=== PATIENT | female | born 1945 | race Caucasian/White ===

== ENCOUNTER 2016-05-03 13:47 | Emergency (ER) | payer MEDICARE, MEDICAID ==
[~2016-05-03] VITALS: Ht 154.9 cm; Wt 70.0 kg
[~2016-05-03 13:47] MED LIST: MOBI7.5T PO; NITR0.4S SL; PROP10TA6 PO
[2016-05-03 13:48] VITALS: BP 153/77; PULSE 88; RESP 20; TEMP 98.2; O2SAT 97
--- NOTE | 2016-05-03 16:05 | PD ---
HPI Chief Complaint: Fall Time Seen by Provider: 16:00 Travel History International Travel<30 days: No Contact w/Intl Traveler<30days: No Traveled to known affect area: No History of Present Illness HPI Patient is a 70-year-old female presenting to the emergency room evaluation of left neck, left shoulder, and back pain. Patient states she fell one week ago when she tripped over a case of water at the store. She denies any head injury or loss of consciousness. Patient further denies any bladder or bowel incontinence, saddle paresthesia, numbness or weakness in her lower extremities. Patient reports laying in bed for the last week, she states it feels better when she still. She states her pain is a 7 out of 10 when she moves around. She's been taking 2 hufx-qqy-tzqdrct Tylenol tablets every 4-6 hours for pain relief. Patient has a history of sciatica, SVT, asthma per her report. She is uncertain what the name of her primary care provider as [facility] Past Medical History Arthritis: Yes Asthma: Yes Atrial Fibrillation: Yes Bipolar Disorder: Yes Anxiety: No Depression: No Heart Rhythm Problems: Yes (afib) Cancer: No Cardiac Catheterization: No Cardiovascular Problems: Yes High Cholesterol: No Chest Pain: Yes Congestive Heart Failure: No COPD: No Cerebrovascular Accident: No Diabetes: No Diminished Hearing: No GERD: Yes Genitourinary: No Headaches: Yes (MIGRAINES) Hepatitis: Yes Hypertension: Yes Immune Disorder: No Implanted Vascular Access Dvce: No Musculoskeletal: Yes (STATES LEFT FOOT FX IN JUNE 01 AND CHRONIC BACK PAIN) Neurologic: Yes Psychiatric: No Reproductive: No Respiratory: Yes Immunizations Current: Yes (FLU 2009) Migraines: Yes Myocardial Infarction: No Seizures: No Sleep Apnea: No Thyroid Disease: No Menopausal: Yes Tubal Ligation: Yes Past Surgical History Abdominal Surgery: Yes (EXPLORATORY SURG) Cholecystectomy: Yes Coronary Artery Bypass Graft: No Other Surgery: Yes (BILATERAL BREAST REDUCTION, LIPOMA REMOVED FROM NECK) Social History Alcohol Use: No Tobacco Use: No Substance Use: No Allergies-Medications (Allergen,Severity, Reaction): Coded Allergies: Ants (Verified Allergy, Intermediate, Swelling, 05/03/16) BITE CEDENO, SWELLING AND BURNING Oxycodone (Verified Allergy, Intermediate, vomiting , 05/03/16) *MDRO Multi-Drug Resistant Organism (Verified Adverse Reaction, Unknown, ) MRSA (abdomen wound) - 09/2012 MRSA PCR Screen NEGATIVE - 03/03/2015 Reported Meds & Prescriptions Reported Meds & Active Scripts Active Tramadol (Tramadol HCl) 50 Mg Tab 50 Mg PO Q6H PRN Propranolol (Propranolol HCl) 10 Mg Tab 10 Mg PO BID Mobic (Meloxicam) 7.5 Mg Tab 7.5 Mg PO DAILY Reported Nitrostat SL (Nitroglycerin) 0.4 Mg Subl 0.4 Mg SL DIRECTED PRN 1 tablet under the tongue as needed for chest pain. Repeat every 5 minutes for a total of 3 DOSES or call 911 if NO relief. Review of Systems Except as stated in HPI: all other systems reviewed are Neg HENT: Positive: Neck Stiffness, Neck Pain, No: Headaches Cardiovascular: No: Chest Pain or Discomfort Respiratory: No: Shortness of Breath Gastrointestinal: No: Nausea, Vomiting, Abdominal Pain Musculoskeletal: Positive: Myalgias, Cramping Physical Exam Narrative GENERAL: Well-developed, well-nourished, alert elderly female. Resting comfortably in no acute distress. SKIN: Warm and dry. HEAD: Atraumatic. Normocephalic. EYES: Pupils equal and round. No scleral icterus. No injection or drainage. ENT: No nasal bleeding or discharge. Mucous membranes pink and moist. NECK: Trachea midline. No JVD. Tenderness to palpation paraspinal musculature in the cervical region. CARDIOVASCULAR: Regular rate and rhythm. No murmur appreciated. RESPIRATORY: No accessory muscle use. Clear to auscultation. Breath sounds equal bilaterally. GASTROINTESTINAL: Abdomen soft, non-tender, nondistended. Hepatic and splenic margins not palpable. MUSCULOSKELETAL: No obvious deformities. No clubbing. No cyanosis. No edema. Tenderness palpation paraspinal musculature in the lumbar region more so on the left than the right. Full range of motion all 4 extremities. 5/5 muscle strength in all 4 extremities. NEUROLOGICAL: Awake and alert. No obvious cranial nerve deficits. Motor grossly within normal limits. Normal speech. PSYCHIATRIC: Appropriate mood and affect; insight and judgment normal. Data Data Last Documented VS Vital Signs Date Time Temp Pulse Resp B/P Pulse Ox O2 Delivery O2 Flow Rate FiO2 05/03/16 13:48 98.2 88 20 153/[address] Cerv Spine W/O Contrast (05/03/16 ) Ct Lumb Spine W/O Contrast (05/03/16 ) Shoulder, Complete (>2vws) (05/03/16 ) Ankle, Complete ([id number]) (05/03/16 ) MDM Medical Decision Making Medical Screen Exam Complete: Yes Emergency Medical Condition: Yes Interpretation(s) Vital Signs Date Time Temp Pulse Resp B/P Pulse Ox O2 Delivery O2 Flow Rate FiO2 05/03/16 13:48 98.2 88 20 153/77 97 Room Air Differential Diagnosis Strain versus sprain versus spasm versus fracture versus other Narrative Course Patient is a 70-year-old female presenting one week after a mechanical fall at the store when she tripped over a case of water falling onto her left side. Patient is been taking zupv-oeg-tqhneod Tylenol and has been mostly on bed rest since the fall occurred. Patient is neurologically intact, imaging ordered and pending. Workup initiated in triage, care patient will be transferred to provider when a medical bed is available. Scripts Tramadol 50 Mg Tab50 Mg PO Q6H PRN (PAIN) #20 TAB Ref 0 Prov:Remi Vickers MD 05/03/16 Aria Franks May 03, 2016 16:05
--- NOTE | 2016-05-03 17:03 | PD ---
HPI Chief Complaint: Fall Time Seen by Provider: 16:48 Travel History International Travel<30 days: No Contact w/Intl Traveler<30days: No Traveled to known affect area: No History of Present Illness HPI 70-year-old female presents for evaluation of pain. One week ago she was in line at a store and she tripped over a cart and water. When on the left side of her body. She has had persistent left-sided neck pain, lower back pain and left shoulder pain and left ankle pain since the fall. Pain is an aching pain which is mild but worse when ambulating. She has been taking Tylenol and using gtty-ugi-nfywufp pain patches but symptoms have persisted which prompted the evaluation today. No bowel or bladder incontinence or saddle anesthesia. No chest pain, shortness of breath, headache. No other complaints. PFSH Past Medical History Arthritis: Yes Asthma: Yes Atrial Fibrillation: Yes Bipolar Disorder: Yes Anxiety: No Depression: No Heart Rhythm Problems: Yes (afib) Cancer: No Cardiac Catheterization: No Cardiovascular Problems: Yes High Cholesterol: No Chest Pain: Yes Congestive Heart Failure: No COPD: No Cerebrovascular Accident: No Diabetes: No Diminished Hearing: No GERD: Yes Genitourinary: No Headaches: Yes (MIGRAINES) Hepatitis: Yes Hypertension: Yes Immune Disorder: No Implanted Vascular Access Dvce: No Musculoskeletal: Yes (STATES LEFT FOOT FX IN JUNE 01 AND CHRONIC BACK PAIN) Neurologic: Yes Psychiatric: No Reproductive: No Respiratory: Yes Immunizations Current: Yes (FLU 2009) Migraines: Yes Myocardial Infarction: No Seizures: No Sleep Apnea: No Thyroid Disease: No Menopausal: Yes Tubal Ligation: Yes Past Surgical History Abdominal Surgery: Yes (EXPLORATORY SURG) Cholecystectomy: Yes Coronary Artery Bypass Graft: No Other Surgery: Yes (BILATERAL BREAST REDUCTION, LIPOMA REMOVED FROM NECK) Social History Alcohol Use: No Tobacco Use: No Substance Use: No Allergies-Medications (Allergen,Severity, Reaction): Coded Allergies: Ants (Verified Allergy, Intermediate, Swelling, 05/03/16) BITE CEDENO, SWELLING AND BURNING Oxycodone (Verified Allergy, Intermediate, vomiting , 05/03/16) *MDRO Multi-Drug Resistant Organism (Verified Adverse Reaction, Unknown, ) MRSA (abdomen wound) - 09/2012 MRSA PCR Screen NEGATIVE - 03/03/2015 Reported Meds & Prescriptions Reported Meds & Active Scripts Active Tramadol (Tramadol HCl) 50 Mg Tab 50 Mg PO Q6H PRN Propranolol (Propranolol HCl) 10 Mg Tab 10 Mg PO BID Mobic (Meloxicam) 7.5 Mg Tab 7.5 Mg PO DAILY Reported Nitrostat SL (Nitroglycerin) 0.4 Mg Subl 0.4 Mg SL DIRECTED PRN 1 tablet under the tongue as needed for chest pain. Repeat every 5 minutes for a total of 3 DOSES or call 911 if NO relief. Review of Systems Except as stated in HPI: all other systems reviewed are Neg Physical Exam Narrative GENERAL: Well-nourished female in no acute distress SKIN: Warm and dry. HEAD: Atraumatic. Normocephalic. EYES: Pupils equal and round. No scleral icterus. No injection or drainage. ENT: No nasal bleeding or discharge. Mucous membranes pink and moist. NECK: Trachea midline. No JVD. CARDIOVASCULAR: Regular rate and rhythm. No murmur appreciated. RESPIRATORY: No accessory muscle use. Clear to auscultation. Breath sounds equal bilaterally. GASTROINTESTINAL: Abdomen soft, non-tender, nondistended. MUSCULOSKELETAL: No obvious deformities. Some tenderness to palpation to the neck and lower back. There is mild soft tissue swelling around the left lateral ankle. Associated tenderness to palpation. Full range of motion of the upper and lower extremities. NEUROLOGICAL: Awake and alert. No obvious cranial nerve deficits. Motor grossly within normal limits. Normal speech. Data Data Last Documented VS Vital Signs Date Time Temp Pulse Resp B/P Pulse Ox O2 Delivery O2 Flow Rate FiO2 05/03/16 13:48 98.2 88 20 153/[address] Cerv Spine W/O Contrast (05/03/16 ) Ct Lumb Spine W/O Contrast (05/03/16 ) Shoulder, Complete (>2vws) (05/03/16 ) Ankle, Complete ([id number]) (05/03/16 ) [facility] Medical Decision Making Medical Screen Exam Complete: Yes Emergency Medical Condition: Yes Medical Record Reviewed: Yes Interpretation(s) CT C SPINE CONCLUSION: Intact cervical spine. Degenerative changes are again noted and appear similar to before. CT lumbar spine CONCLUSION: No fracture or subluxation of the lumbar spine. Chronic appearing degenerative changes as above. Left shoulder x-ray normal Left ankle x-ray CONCLUSION: Lateral soft tissue swelling without fracture. Differential Diagnosis Strain, fracture, herniated disc, contusion, sprain Narrative Course 70-year-old female who presents one week after mechanical trip and fall with neck and lower back pain, left shoulder pain and left ankle pain. CT imaging of cervical spine, lumbar spine and left shoulder were ordered in triage. Left ankle x-ray has been ordered. X-ray CT imaging revealed no acute abnormalities. She appears to have a lateral ankle sprain as well as strains to her back and shoulder. She is stable for discharge. Diagnosis Primary Impression: Left ankle sprain Qualified Code: S93.402A - Sprain of left ankle, unspecified ligament, initial encounter Additional Impressions: Shoulder strain Qualified Code: S46.912A - Shoulder strain, left, initial encounter Cervical strain Qualified Code: S16.1XXA - Cervical strain, initial encounter Additional Instructions: Rest, avoid strenuous activity. Medication as needed. Follow-up with primary care physician in one week for recheck. Return for any emergent medical conditions. Med/Other Pt SpecificInfo: Prescription(s) given Scripts Tramadol 50 Mg Tab50 Mg PO Q6H PRN (PAIN) #20 TAB Ref 0 Prov:Remi Vickers MD 05/03/16 Disposition: 01 DISCHARGE HOME Condition: Stable Olaf Bernal May 03, 2016 17:03
--- NOTE | 2016-05-03 17:06 | RADRPT ---
EXAM DATE/TIME: 05/03/2016 16:22 [facility] COMPARISON: CT CERVICAL SPINE W/O CONTRAST, August 03, 2015, 12:50. INDICATIONS : Left sided neck pain and left hip pain status post fall one week ago. RADIATION DOSE: 29.74 CTDIvol (mGy) MEDICAL HISTORY : Hypertension. SURGICAL HISTORY : Tubal ligation. Cholecystectomy. ENCOUNTER: Initial ACUITY: 1 week PAIN SCALE: 7/10 LOCATION: Left neck TECHNIQUE: Volumetric scanning of the cervical spine was performed. Multiplanar reconstructions in the sagittal, coronal and oblique axial planes were performed. Using automated exposure control and adjustment o f the mA and/or kV according to patient size, radiation dose was kept as low as reasonably achievable to obtain optimal diagnostic quality images. FINDINGS: Cervical spine alignment is unchanged and within normal limits. No cortical break or trabecular disru ption demonstrated. Vertebral bodies have normal height. There is multilevel disc space narrowing with uncovertebral and facet osteoarthritis, moderate to sev ere at C5/C6, mild at C2/C3 and moderate at all the other levels. There is a small, broad disc protru justin at C5/C6 that appears chronic and not significantly changed. Juxtavertebral soft tissues are within normal limits. CONCLUSION: Intact cervical spine. Degenerative changes are again noted and appear similar to before. Geoff Reno MD on May 03, 2016 at 17:02 Board Certified Radiologist. This report was verified electronically.
--- NOTE | 2016-05-03 17:09 | RADRPT ---
EXAM DATE/TIME: 05/03/2016 16:38 [facility] COMPARISON: No previous studies available for comparison. INDICATIONS : Left shoulder pain post fall. MEDICAL HISTORY : None. SURGICAL HISTORY : None. ENCOUNTER: Initial ACUITY: 1 day PAIN SCORE: 8/10 LOCATION: Left shoulder FINDINGS: There is no evidence of acute fracture. Bony mineralization is normal. The glenohumeral joint is inta ct. There is mild osteoarthritis involving the acromioclavicular joint. CONCLUSION: 1. There is no evidence of acute fracture. Merritt Cartagena MD on May 03, 2016 at 17:07 Board Certified Radiologist. This report was verified electronically.
--- NOTE | 2016-05-03 17:11 | RADRPT ---
EXAM DATE/TIME: 05/03/2016 16:27 [facility] COMPARISON: No previous studies available for comparison. INDICATIONS : Left sided neck pain and left hip pain status post fall one week ago. RADIATION DOSE: 31.86 CTDIvol (mGy) MEDICAL HISTORY : Hypertension. SURGICAL HISTORY : Cholecystectomy. Tubal ligation. ENCOUNTER: Initial ACUITY: 1 week PAIN SCALE: 7/10 LOCATION: Left hip TECHNIQUE: Volumetric scanning of the lumbar spine was performed. Multiplanar reconstructions in the sagittal, coronal and oblique axial planes were performed. Using automated exposure control and adjustment of the mA and/or kV according to patient size, radiation dose was kept as low as reasonably achievable t o obtain optimal diagnostic quality images. FINDINGS: VERTEBRAE: Normal vertebral body height. ALIGNMENT: No evidence of subluxation. Chronic appearing mild levoconvex curvature centered around L3. T12-L1: The thecal sac has a normal diameter. No evidence of disc bulge or protrusion. The neural foramina are patent bilaterally. L1-L2: There is bulging of the disc annulus and mild bilateral facet osteoarthritis. No foraminal or spinal stenosis. L2-L3: There is bulging of the disc annulus and mild bilateral facet osteoarthritis. No foraminal or spinal stenosis. L3-L4: The disc has mild loss of height. There is a small, broad disc protrusion and moderate bilateral face t osteoarthritis with thickening of the ligamentum flavum. There is mild spinal stenosis and mild to moderate right, mild left foraminal stenosis. L4-L5: The disc has mild loss of height. There is a small, broad disc protrusion and moderate bilateral face t osteoarthritis with thickening of the ligamentum flavum. There is mild spinal stenosis and mild meliza ateral foraminal encroachment. L5-S1: The disc has severe loss of height and vacuum phenomena. Grade 1 degenerative retrolisthesis noted. T here is a small moderate posterior disc osteophyte complex and moderate to severe bilateral facet ost eoarthritis. There is mild to moderate right and moderate left foraminal encroachment. No significant spinal stenosis. CONCLUSION: No fracture or subluxation of the lumbar spine. Chronic appearing degenerative changes as above. Geoff Reno MD on May 03, 2016 at 17:05 Board Certified Radiologist. This report was verified electronically.
[2016-05-03] MEDS ORDERED: TRAM50TA PO (17:20)
--- NOTE | 2016-05-03 18:01 | RADRPT ---
EXAM DATE/TIME: 05/03/2016 17:37 [facility] COMPARISON: No previous studies available for comparison. INDICATIONS : Left ankle pain after fall. MEDICAL HISTORY : None. SURGICAL HISTORY : None. ENCOUNTER: Initial ACUITY: 1 day PAIN SCORE: 6/10 LOCATION: Left medial ankle FINDINGS: Soft tissue swelling is seen laterally. No fracture or subluxation demonstrated. No radiopaque foreig n body. CONCLUSION: Lateral soft tissue swelling without fracture. Geoff Reno MD on May 03, 2016 at 17:59 Board Certified Radiologist. This report was verified electronically.
[2016-05-09] MEDS ORDERED: MISC-289 (16:13)
[2016-05-09] MEDS ORDERED: DICL25 PO (16:16)
[2016-08-01] MEDS ORDERED: DICL25 PO (11:51)
== END 2016-05-03 18:16 | disposition home or self-care (01) ==
LOC: NEPC 13:47
DX: S16.1XXA Strain of muscle, fascia and tendon at neck level, initial encounter (principal); S46.912A Strain of unspecified muscle, fascia and tendon at shoulder and upper arm level, left arm, initial encounter; S93.402A Sprain of unspecified ligament of left ankle, initial encounter; I48.91 Unspecified atrial fibrillation; I10 Essential (primary) hypertension; W18.09XA Striking against other object with subsequent fall, initial encounter; Y92.89 Other specified places as the place of occurrence of the external cause
CPT/HCPCS: 72125; 72131; 73030; 73610

== ENCOUNTER → 2016-07-10 | Outpatient (CLI) | payer MEDICARE, MEDICAID ==
[~2016-07-10] MED LIST changes: +DICL25 PO; +MISC-289; -MOBI7.5T PO
[2016-07-10 12:40] LABS: HEMATOCRIT 37.6 % (35.0-46.0); MEAN CELL VOLUME 84.7 FL (80.0-100.0); MEAN CORPUSCULAR HGB CONC 34.2 % (32.0-36.0); PLATELET COUNT 274 TH/MM3 (150-450); RED BLOOD COUNT 4.44 MIL/MM3 (4.00-5.30); RED CELL DISTRIBUTION WIDTH 13.9 % (11.6-17.2); REVIEW FLAG FINAL; WHITE BLOOD COUNT 5.7 TH/MM3 (4.0-11.0)
[2016-07-10 13:08] LABS: WESTERGREN SEDIMENTATION RATE 34 mm/hr (0-30)
[2016-07-10 13:30] LABS: BICARBONATE 26.3 MEQ/L (21.0-32.0)
== END ==
LOC: CLAB 12:08
PROVIDERS: ATTEND Family Medicine
DX: E78.5 Hyperlipidemia, unspecified (principal); M79.1 Myalgia; M25.50 Pain in unspecified joint; R53.83 Other fatigue
CPT/HCPCS: 36415; 80048; 80061; 84443; 85027; 85652

== ENCOUNTER 2016-09-04 12:26 | Emergency (ER) | payer MEDICARE, MEDICAID ==
[~2016-09-04] VITALS: Ht 154.9 cm; Wt 68.0 kg
[2016-09-04 12:27] VITALS: BP 129/79; PULSE 82; RESP 20; TEMP 98.2; O2SAT 97
--- NOTE | 2016-09-04 12:30 | PD ---
Physical Exam Time Seen by Provider: 12:28 Narrative 71 y/o female here for evaluation of a "fluttering" sound in her left ear. She denies any pain/drainage. Concerned that an insect may be in her ear. Vital signs reviewed. Seen at triage desk. Awaiting bed placement. Data Data Last Documented VS Vital Signs Date Time Temp Pulse Resp B/P Pulse Ox O2 Delivery O2 Flow Rate FiO2 09/04/16 12:27 98.2 82 20 129/79 97 Room Air [facility] Medical Record Reviewed: Yes Supervised Visit with NICOLE: Olaf Us Sep 04, 2016 12:30
--- NOTE | 2016-09-04 12:59 | PD ---
HPI Chief Complaint: ENT Complaint Time Seen by Provider: 12:55 Travel History International Travel<30 days: No Contact w/Intl Traveler<30days: No Traveled to known affect area: No History of Present Illness HPI 71-year-old female presents emergency Department with complaint of "fluttering" in her left ear. Says she normally gets her ears cleaned out secondary to wax and has not done it recently. Does not think there is anything in her ear except flax. Denies ear pain, decreased hearing. Denies nasal congestion, fever, sore throat, cough. Denies lightheadedness, dizziness, headache. Has been trying to use a Q-tip to remove the wax in her ear. Has no other medical complaints. No other modifying factors or associated signs and symptoms. PFSH Past Medical History Arthritis: Yes Asthma: Yes Atrial Fibrillation: Yes Bipolar Disorder: Yes Anxiety: No Depression: No Heart Rhythm Problems: Yes (afib) Cancer: No Cardiac Catheterization: No Cardiovascular Problems: Yes High Cholesterol: No Chest Pain: Yes Congestive Heart Failure: No COPD: No Cerebrovascular Accident: No Diabetes: No Diminished Hearing: No GERD: Yes Genitourinary: No Headaches: Yes (MIGRAINES) Hepatitis: Yes Hypertension: Yes Immune Disorder: No Implanted Vascular Access Dvce: No Musculoskeletal: Yes (STATES LEFT FOOT FX IN JUNE 01 AND CHRONIC BACK PAIN) Neurologic: Yes Psychiatric: No Reproductive: No Respiratory: Yes Immunizations Current: Yes (FLU 2009) Migraines: Yes Myocardial Infarction: No Seizures: No Sleep Apnea: No Thyroid Disease: No ?: Not Menopausal: Yes Tubal Ligation: Yes Past Surgical History Abdominal Surgery: Yes (EXPLORATORY SURG) Cholecystectomy: Yes Coronary Artery Bypass Graft: No Other Surgery: Yes (BILATERAL BREAST REDUCTION, LIPOMA REMOVED FROM NECK) Family History Family Myocardial Infarction: Yes Social History Alcohol Use: No Tobacco Use: No Substance Use: No Allergies-Medications (Allergen,Severity, Reaction): Coded Allergies: Ants (Verified Allergy, Intermediate, Swelling, 09/04/16) BITE CEDENO, SWELLING AND BURNING Oxycodone (Verified Allergy, Intermediate, vomiting , 09/04/16) *MDRO Multi-Drug Resistant Organism (Verified Adverse Reaction, Unknown, ) MRSA (abdomen wound) - 09/2012 MRSA PCR Screen NEGATIVE - 03/03/2015 Reported Meds & Prescriptions Reported Meds & Active Scripts Active Diclofenac Sodium DR (Diclofenac Sodium) 25 Mg Tabdr 25 Mg PO BID Bath Bench with Back (Device) 1 Mis Mis 1 Ea .ROUTE DIRECTED Propranolol (Propranolol HCl) 10 Mg Tab 10 Mg PO BID Reported Nitrostat SL (Nitroglycerin) 0.4 Mg Subl 0.4 Mg SL DIRECTED PRN 1 tablet under the tongue as needed for chest pain. Repeat every 5 minutes for a total of 3 DOSES or call 911 if NO relief. Review of Systems Except as stated in HPI: all other systems reviewed are Neg Physical Exam Narrative GENERAL: Well-nourished, well-developed elderly, female patient, in no acute distress; afebrile, nontoxic-appearing SKIN: Warm and dry. No rash. HEAD: Atraumatic. Normocephalic. EYES: Pupils equal and round. No scleral icterus. No injection or drainage. ENT: Mucosa pink and moist. No erythema or exudates. No uvular edema. No uvular , palatal, or tonsillar deviation. Airway patent. EARS: Bilateral pinnae and external canals appear within normal limits. Unable to visualize bilateral tympanic membrane secondary to cerumen impaction. NECK: Trachea midline. No lymphadenopathy. CARDIOVASCULAR: Regular rate. RESPIRATORY: No accessory muscle use. GASTROINTESTINAL: Rounded. MUSCULOSKELETAL: No obvious deformities. No clubbing. No cyanosis. No edema. NEUROLOGICAL: Awake and alert. Oriented 3. No obvious cranial nerve deficits. Motor grossly within normal limits. Normal speech. Moves all extremities. 5/5 strength to all extremities. PSYCHIATRIC: Appropriate mood and affect; insight and judgment normal. Data Data Last Documented VS Vital Signs Date Time Temp Pulse Resp B/P Pulse Ox O2 Delivery O2 Flow Rate FiO2 09/04/16 12:27 98.2 82 20 129/79 97 Room Air Orders Ear Irrigation (09/04/16 12:54) MDM Medical Decision Making Medical Screen Exam Complete: Yes Emergency Medical Condition: Yes Medical Record Reviewed: Yes Differential Diagnosis Cerumen impaction, foreign body, medical clearance Narrative Course 71-year-old female with bilateral cerumen impaction. Ear irrigation ordered and performed by RN in the ER to clear cerumen impaction. Instructed patient to follow up with primary care provider. Patient verbalizes understanding and agreement with treatment plan. Patient is medically cleared and stable for discharge. Discussed reasons to return to the emergency department. Patient agrees with treatment plan. The patients vital signs are stable and the patient is stable for outpatient follow-up and treatment. Patient discharged home, stable and in no acute distress. Diagnosis Primary Impression: Impacted cerumen of both ears Referrals: Primary Care Physician Patient Instructions: Cerumen Impaction (ED), General Instructions Additional Instructions: Follow-up with ENT as needed Follow-up with primary care provider Return to the emergency department immediately with worsening of symptoms Med/Other Pt SpecificInfo: No Change to Meds, No Meds Exist/No RX given Disposition: 01 DISCHARGE HOME Condition: Stable Mona Lynch [facility] Sep 04, 2016 12:59
[2016-09-07] MEDS ORDERED: DICL25 PO (08:33)
== END 2016-09-04 13:53 | disposition home or self-care (01) ==
LOC: NEPD 12:26
DX: H61.23 Impacted cerumen, bilateral (principal); K21.9 Gastro-esophageal reflux disease without esophagitis; I48.91 Unspecified atrial fibrillation; I10 Essential (primary) hypertension; F31.9 Bipolar disorder, unspecified; J45.909 Unspecified asthma, uncomplicated; Z79.899 Other long term (current) drug therapy
CPT/HCPCS: 99283

== ENCOUNTER 2017-01-15 13:04 | Emergency (ER) | payer OTHER, MEDICAID ==
[~2017-01-15] VITALS: Ht 154.9 cm; Wt 68.2 kg
[~2017-01-15 13:04] MED LIST changes: +MEDR4PAK PO; +RANI150C PO; +TIZA2CAP3 PO
[2017-01-15] MEDS ORDERED: LIDOCAINE HCL 1% 50 ML VIAL INFIL ONE (13:15)
[2017-01-15 13:17] VITALS: BP 138/86; PULSE 78; RESP 16; TEMP 97.8; O2SAT 98
--- NOTE | 2017-01-15 14:15 | RADRPT ---
EXAM DATE/TIME: 01/15/2017 13:38 [facility] COMPARISON: CT BRAIN W/O CONTRAST, August 03, 2015, 12:50. INDICATIONS : Fall contusion above right eye RADIATION DOSE: 56.35 CTDIvol (mGy) MEDICAL HISTORY : Cardiovascular disease. Migraines SURGICAL HISTORY : Cholecystectomy. Tubal ligation. ENCOUNTER: Initial ACUITY: 1 day PAIN SCALE: 10/10 LOCATION: cranial TECHNIQUE: Multiple contiguous axial images were obtained of the head. Using automated exposure control and adj ustment of the mA and/or kV according to patient size, radiation dose was kept as low as reasonably a chievable to obtain optimal diagnostic quality images. DICOM format image data is available electro nically for review and comparison. FINDINGS: CEREBRUM: There is mild cerebral atrophy. Ventricles are normal in size. No evidence of midline shift, mass le justin, hemorrhage or acute infarction. No extra-axial fluid collections are seen. POSTERIOR FOSSA: The cerebellum and brainstem demonstrate no acute finding. The 4th ventricle is midline. The cerebe llopontine angle is unremarkable. EXTRACRANIAL: There is small air-fluid level in the right maxillary antrum. Mild soft tissue swelling is present in the left supraorbital region. There are multiple subcutaneous calcified and noncalcified nodules. SKULL: The calvaria is intact. No evidence of skull fracture. CONCLUSION: 1. No acute intracranial abnormality is identified. 2. There is mild left scalp soft tissue swelling in the left supraorbital region. A small air-fluid l evel is present in the right maxillary antrum. 3. The multiple scalp subcutaneous nodules remain present. Geoff Michelle MD on January 15, 2017 at 14:09 Board Certified Radiologist. This report was verified electronically.
--- NOTE | 2017-01-15 14:17 | RADRPT ---
EXAM DATE/TIME: 01/15/2017 13:38 [facility] COMPARISON: CT CERVICAL SPINE W/O CONTRAST, May 03, 2016, 16:22. INDICATIONS : Fall contusion above right eye,neck pain. RADIATION DOSE: 39.79 CTDIvol (mGy) MEDICAL HISTORY : Cardiovascular disease. migraines,asthma SURGICAL HISTORY : Cholecystectomy. Tubal ENCOUNTER: Initial ACUITY: 1 day PAIN SCALE: 10/10 LOCATION: neck TECHNIQUE: Volumetric scanning of the cervical spine was performed. Multiplanar reconstructions in the sagittal, coronal and oblique axial planes were performed. Using automated exposure control and adjustment o f the mA and/or kV according to patient size, radiation dose was kept as low as reasonably achievable to obtain optimal diagnostic quality images. DICOM format image data is available electronically f or review and comparison. FINDINGS: There is normal sagittal spine alignment of the cervical spine. No anterolisthesis or retrolisthesis is present. The atlantoaxial relationship is within normal limits. There is no prevertebral soft tiss ue swelling present. No fracture or dislocation is identified. There is degenerative disc disease at C3-C4 through C6-C7. The visualized portions of the posterior fossa, paraspinous soft tissues, and upper lung zones demons trate no acute abnormality. CONCLUSION: No acute cervical spine abnormality is identified. Geoff Michelle MD on January 15, 2017 at 14:13 Board Certified Radiologist. This report was verified electronically.
--- NOTE | 2017-01-15 14:43 | RADRPT ---
EXAM DATE/TIME: 01/15/2017 14:11 [facility] COMPARISON: No previous studies available for comparison. INDICATIONS : Left leg pain post fall today. MEDICAL HISTORY : Hypertension. SURGICAL HISTORY : Cholecystectomy. ENCOUNTER: Initial ACUITY: 1 day PAIN SCORE: 5/10 LOCATION: Left hip FINDINGS: AP view of the pelvis with 2 views of the left hip demonstrates no fracture or dislocation. Mineraliz ation is mildly decreased. There is mild osteoarthritis of the hip joints bilaterally. Pelvic bones a nd soft tissues demonstrate no acute finding. CONCLUSION: No acute abnormality is identified. Geoff Michelle MD on January 15, 2017 at 14:39 Board Certified Radiologist. This report was verified electronically.
--- NOTE | 2017-01-15 14:44 | RADRPT ---
EXAM DATE/TIME: 01/15/2017 14:11 [facility] COMPARISON: No previous studies available for comparison. INDICATIONS : Left knee pain post fall, today. MEDICAL HISTORY : Hypertension. SURGICAL HISTORY : Cholecystectomy. ENCOUNTER: Initial ACUITY: 1 day PAIN SCORE: 10/10 LOCATION: Left knee FINDINGS: 5 views of the left knee demonstrate no fracture or dislocation. No joint effusion is present. There is medial compartment osteoarthritis with joint space narrowing and osteophytes. No soft tissue abnor mality or radiopaque foreign body is identified. CONCLUSION: No acute left knee abnormality is identified. There is medial compartment osteoarthritis. Geoff Michelle MD on January 15, 2017 at 14:41 Board Certified Radiologist. This report was verified electronically.
[2017-01-15] MEDS ORDERED: ONDANSETRON ODT 4 MG TAB PO ONE (14:45)
--- NOTE | 2017-01-15 15:08 | PD ---
HPI Chief Complaint: Fall Time Seen by Provider: 14:35 Travel History International Travel<30 days: No Contact w/Intl Traveler<30days: No Traveled to known affect area: No History of Present Illness HPI 71-year-old female with EMS of chronic neck and back pain presents to the ED via EMS after fall from standing. The patient states that she has sciatica and her left leg "gave out on me." She endorses hitting her head on the concrete with brief LOC. On presentation she complains of headache and neck pain as well as pain of "the whole left side of my body." She also endorses nausea. She has not been ambulatory since the accident. She does not use any blood thinners. She endorses history of chronic falls and states that her tetanus immunization was updated approximately one year ago. PFSH Past Medical History Hx Anticoagulant Therapy: No Arthritis: Yes Asthma: Yes Atrial Fibrillation: Yes Bipolar Disorder: Yes (PT STATES SHE IS UNSURE? ) Anxiety: No Depression: No Heart Rhythm Problems: Yes (afib, TACHYCARDIA) Cancer: No Cardiac Catheterization: No Cardiovascular Problems: Yes (TACHYCARDIA, AFIB) High Cholesterol: No Chemotherapy: No Chest Pain: Yes Congestive Heart Failure: No COPD: No Cerebrovascular Accident: No Diabetes: No Diminished Hearing: No GERD: Yes Genitourinary: No Headaches: Yes (MIGRAINES) Hepatitis: Yes ("YELLOW JAUNDICE") Hypertension: Yes Immune Disorder: No Implanted Vascular Access Dvce: No Musculoskeletal: Yes (STATES LEFT FOOT FX IN JUNE 01 AND CHRONIC BACK PAIN) Neurologic: Yes Psychiatric: Yes (BIPOLAR, PTSD) Reproductive: No Respiratory: Yes (ASTHMA) Immunizations Current: Yes (FLU 2009) Migraines: Yes Myocardial Infarction: No Seizures: No Sleep Apnea: No Thyroid Disease: No ?: Not Menopausal: Yes Tubal Ligation: Yes Past Surgical History Abdominal Surgery: Yes (EXPLORATORY SURG) Cholecystectomy: Yes Coronary Artery Bypass Graft: No Hysterectomy: No Other Surgery: Yes (BILATERAL BREAST REDUCTION, LIPOMA REMOVED FROM NECK) Family History Family Myocardial Infarction: Yes Social History Alcohol Use: No Tobacco Use: No Substance Use: No Allergies-Medications (Allergen,Severity, Reaction): Coded Allergies: insect venom (Verified Allergy, Intermediate, Swelling, 01/15/17) BITE CEDENO, SWELLING AND BURNING oxycodone (Verified Allergy, Intermediate, vomiting , 01/15/17) *MDRO Multi-Drug Resistant Organism (Verified Adverse Reaction, Unknown, 01/15/17) MRSA (abdomen wound) - 09/2012 MRSA PCR Screen NEGATIVE - 03/03/2015 Reported Meds & Prescriptions Reported Meds & Active Scripts Active Diclofenac Sodium DR (Diclofenac Sodium) 25 Mg Tabdr 25 Mg PO BID Propranolol (Propranolol HCl) 10 Mg Tab 10 Mg PO BID Reported Nitrostat SL (Nitroglycerin) 0.4 Mg Subl 0.4 Mg SL DIRECTED PRN 1 tablet under the tongue as needed for chest pain. Repeat every 5 minutes for a total of 3 DOSES or call 911 if NO relief. Review of Systems Except as stated in HPI: all other systems reviewed are Neg Physical Exam Narrative GENERAL: Well-nourished, well-developed white female in no acute distress. On a backboard and wearing a c-collar SKIN: Focused skin assessment warm/dry. 2 small lacerations over the left eye without visible foreign body or active bleeding. HEAD: Normocephalic. Atraumatic. No tenderness to palpation of the bones of the skull or face. EYES: No scleral icterus. No injection or drainage. PERRLA. EOMI. NECK: Supple, trachea midline. No JVD or lymphadenopathy. + Midline tenderness c -collar remains in place pending CT scan CARDIOVASCULAR: Regular rate and rhythm without murmurs, gallops, or rubs. RESPIRATORY: Breath sounds clear and equal bilaterally. No accessory muscle use. GASTROINTESTINAL: Abdomen soft, non-tender, nondistended. Active bowel sounds MUSCULOSKELETAL: No cyanosis, or edema. Tender to palpation of the left hip and left knee. Pain in the hip worsened with internal and external rotation. 5 /5 strength in the bilateral lower extremities. 2+ DP pulses bilaterally. And station intact to light touch distally bilaterally. BACK: Nontender without obvious deformity. No CVA tenderness. Data Data Last Documented VS Vital Signs Date Time Temp Pulse Resp B/P (MAP) Pulse Ox O2 Delivery O2 Flow Rate FiO2 01/15/17 13:20 98 Room Air 01/15/17 13:17 97.8 78 16 138/86 (103) Orders Orders Ct Brain W/O Iv Contrast(Rout) (01/15/17 13:15) Ct Cerv Spine W/O Contrast (01/15/17 13:15) Hip, Uni(Ap&Lat) W Ap Pelvis (01/15/17 13:15) Knee, Complete (4vws) (01/15/17 13:15) Lidocaine 1% Inj (50 Ml) (Xylocaine 1% I (01/15/17 13:15) Ondansetron Odt (Zofran Odt) (01/15/17 14:45) Tramadol (Ultram) (01/15/17 15:15) MDM Medical Decision Making Medical Screen Exam Complete: Yes Emergency Medical Condition: Yes Differential Diagnosis Laceration versus fracture versus ICH versus need for tetanus immunization versus other Narrative Course 71-year-old female with EMS of chronic neck and back pain presents to the ED via EMS after fall from standing. The patient states that she has sciatica and her left leg "gave out on me." She endorses hitting her head on the concrete with brief LOC. On presentation she complains of headache, neck pain, nausea and pain of "the whole left side of my body." She has not been ambulatory since the accident. Denies blood thinners. Vitals reviewed. Physical exam reveals no focal neuro deficits. + Midline tenderness of the cervical spine, CT collar remains in place pending CT scanning. She does have a laceration over the left eye and is tender to palpation of the joints of the left lower extremity. She repeatedly asked for pain medications. She was administered 50 mg tramadol and 4 mg ODT Zofran. Laceration repair was performed. Please see my procedure note for details. CT scanning of the brain and cervical spine reveal no acute abnormality per radiology read. X-rays of the left hip and knee no acute abnormality per radiology read. The patient was walked tested and demonstrates a normal gait around the emergency room. She is repeatedly requesting a Vicodin prescription. I do not feel this is warranted for facial laceration. She is instructed to keep the wound clean and dry, suture removal in 5-7 days. She is instructed to follow-up with her primary care provider for treatment of her chronic back pain. She is stable and discharged home. Procedures Procedure Narrative LACERATION LOCATION: Just superior to the left eye LENGTH: 2 cm NUMBER OF STITCHES/JEWELS: 3 REPAIR: The area of the laceration was prepped with Betadine and sterilely draped. The laceration was infiltrated with 1% lidocaine. The wound was copiously irrigated and explored without evidence of foreign body, tendon injury or neurovascular injury. The wound was closed using 4-0 Prolene. This was a single layer repair. A thin layer of antibiotic ointment was applied. The patient was advised to keep the wound clean and dry. Patient tolerated the procedure well. LACERATION LOCATION: Just superior to the left eye LENGTH: 1 cm NUMBER OF STITCHES/JEWELS: 2 REPAIR: The area of the laceration was prepped with Betadine and sterilely draped. The laceration was infiltrated with 1% lidocaine. The wound was copiously irrigated and explored without evidence of foreign body, tendon injury or neurovascular injury. The wound was closed using 4-0 Prolene. This was a single layer repair. A thin layer of antibiotic ointment was applied. The patient was advised to keep the wound clean and dry. Patient tolerated the procedure well. Diagnosis Primary Impression: Fall from standing Qualified Codes: W19.XXXA - Unspecified fall, initial encounter Additional Impressions: Chronic back pain Qualified Codes: M54.40 - Lumbago with sciatica, unspecified side; G89.29 - Other chronic pain Facial laceration Qualified Codes: S01.81XA - Laceration without foreign body of other part of head, initial encounter Referrals: Primary Care Physician Patient Instructions: Facial Laceration (ED), Fall Prevention for Older Adults (ED), General Instructions Additional Instructions: Rest, hydrate. Resume normal, gentle activities as tolerated. You may bathe normally. Do not submerge the wound. After bathing pat of wound dry. Allow the wound to air dry for 10-15 minutes. Apply a thin layer of antibiotic ointment and a clean, dry dressing. Monitor for signs of infection such as redness, discharge, swelling, warmth, fevers. Suture removal in 5-7 days. Utilize [id number] pain medications, as described on the label, as needed. Follow-up with your primary care provider. Return to the ED for any urgent or emergent medical condition. Disposition: 01 DISCHARGE HOME Condition: Stable Izabela Bah Jan 15, 2017 15:08
[2017-01-15] MEDS ORDERED: traMADol HCL 50 MG TAB PO ONE (15:15)
[2017-01-15 15:52] VITALS: BP 138/70
[2017-01-15 16:07] VITALS: BP 130/68
[2017-01-22] MEDS ORDERED: WALKER WHEELS/F1 MIS (17:05)
== END 2017-01-15 16:09 | disposition home or self-care (01) ==
LOC: NEPC 13:04
DX: M54.9 Dorsalgia, unspecified (principal); G89.29 Other chronic pain; S01.81XA Laceration without foreign body of other part of head, initial encounter; M54.2 Cervicalgia; R51 Headache; R11.0 Nausea; J45.909 Unspecified asthma, uncomplicated; I48.91 Unspecified atrial fibrillation; W19.XXXA Unspecified fall, initial encounter
CPT/HCPCS: 12013; 70450; 72125; 73502; 73564

== ENCOUNTER 2017-06-11 12:29 | Emergency (ER) | payer OTHER, MEDICAID ==
[~2017-06-11 12:29] MED LIST changes: -MEDR4PAK PO; -MISC-289; -RANI150C PO; +SERT-132 PO; -TIZA2CAP3 PO; +WALKER WHEELS/F1 MIS
[2017-06-11 12:45] VITALS: BP 175/84; PULSE 87; RESP 18; TEMP 98.4; O2SAT 99
[2017-06-11] MEDS ORDERED: MELO7.5T27 PO (13:15)
[2017-06-11] MEDS ORDERED: TRAM50TA PO (13:15)
[2017-06-11] MEDS ORDERED: KETOROLAC TROMETHAMINE 60 MG/2 ML (IM) VIAL IM ONE (13:15)
--- NOTE | 2017-06-11 13:20 | PD ---
HPI Chief Complaint: Musculoskeletal Complaint Time Seen by Provider: 12:59 Travel History International Travel<30 days: No Contact w/Intl Traveler<30days: No Traveled to known affect area: No History of Present Illness HPI 71-year-old female presents emergency department with ongoing pain in her shoulders, left hip, left knee, left ankle. Patient states these pains are chronic and recurrent, and denies recent injury. Patient states her primary care physician will not prescribe anything for her pain. She states normally [place] where she is from in the summer, she gets Lortab. Patient has not been referred to chronic pain management here in [place]. She denies numbness, tingling, or weakness. No fevers or chills. Patient has history of MRSA, is allergic to insects, oxycodone, and pollen. PFSH Past Medical History Hx Anticoagulant Therapy: No Arthritis: Yes Asthma: Yes Atrial Fibrillation: Yes Bipolar Disorder: Yes (PT STATES SHE IS UNSURE? ) Anxiety: No Depression: No Heart Rhythm Problems: Yes (afib, TACHYCARDIA) Cancer: No Cardiac Catheterization: No Cardiovascular Problems: Yes (TACHYCARDIA, AFIB) High Cholesterol: No Chemotherapy: No Chest Pain: Yes Congestive Heart Failure: No COPD: No Cerebrovascular Accident: No Diabetes: No Diminished Hearing: No GERD: Yes Genitourinary: No Headaches: Yes (MIGRAINES) Hepatitis: Yes ("YELLOW JAUNDICE") Hypertension: Yes Immune Disorder: No Implanted Vascular Access Dvce: No Musculoskeletal: Yes (STATES LEFT FOOT FX IN JUNE 01 AND CHRONIC BACK PAIN) Neurologic: Yes Psychiatric: Yes (BIPOLAR, PTSD) Reproductive: No Respiratory: Yes (ASTHMA) Immunizations Current: Yes (FLU 2009) Migraines: Yes Myocardial Infarction: No Seizures: No Sleep Apnea: No Thyroid Disease: No Menopausal: Yes Tubal Ligation: Yes Past Surgical History Abdominal Surgery: Yes (EXPLORATORY SURG) Cholecystectomy: Yes Coronary Artery Bypass Graft: No Hysterectomy: No Other Surgery: Yes (BILATERAL BREAST REDUCTION, LIPOMA REMOVED FROM NECK) Social History Alcohol Use: No Tobacco Use: No Substance Use: No Allergies-Medications (Allergen,Severity, Reaction): Coded Allergies: insect venom (Verified Allergy, Intermediate, Swelling, 06/11/17) BITE CEDENO, SWELLING AND BURNING oxycodone (Verified Allergy, Intermediate, vomiting , 06/11/17) pollen extracts (Verified Allergy, Intermediate, Sneezing, 06/11/17) *MDRO Multi-Drug Resistant Organism (Verified Adverse Reaction, Unknown, ) MRSA (abdomen wound) - 09/2012 MRSA PCR Screen NEGATIVE - 03/03/2015 Reported Meds & Prescriptions Reported Meds & Active Scripts Active Tramadol (Tramadol HCl) 50 Mg Tab 50 Mg PO Q6H PRN Meloxicam 7.5 Mg Tab 7.5 Mg PO BID 30 Days Sertraline (Sertraline HCl) 50 Mg Tab 50 Mg PO DAILY Propranolol (Propranolol HCl) 10 Mg Tab 10 Mg PO BID Walker with Front Wheels (Device) 1 Mis Mis Ea .ROUTE DIRECTED Diclofenac Sodium DR (Diclofenac Sodium) 25 Mg Tabdr 25 Mg PO BID Reported Nitrostat SL (Nitroglycerin) 0.4 Mg Subl 0.4 Mg SL DIRECTED PRN 1 tablet under the tongue as needed for chest pain. Repeat every 5 minutes for a total of 3 DOSES or call 911 if NO relief. Review of Systems Except as stated in HPI: all other systems reviewed are Neg General / Constitutional: No: Fever Eyes: No: Visual changes HENT: No: Headaches Cardiovascular: No: Chest Pain or Discomfort Respiratory: No: Shortness of Breath Gastrointestinal: No: Abdominal Pain Genitourinary: No: Dysuria Musculoskeletal: Positive: Myalgias, Arthralgias, Limited ROM, Pain Skin: No Rash Neurologic: No: Weakness Psychiatric: No: Depression Endocrine: No: Polydipsia Hematologic/Lymphatic: No: Easy Bruising Physical Exam Narrative GENERAL: Patient appears in no obvious distress per SKIN: Warm and dry. Normal color. Normal turgor. No rash HEAD: Atraumatic. Normocephalic. EYES: Pupils equal and round. No scleral icterus. No injection or drainage. ENT: No nasal bleeding or discharge. Mucous membranes pink and moist. NECK: Trachea midline. Supple nontender CARDIOVASCULAR: Regular rate and rhythm. RESPIRATORY: No accessory muscle use. Clear to auscultation. Breath sounds equal bilaterally. GASTROINTESTINAL: Abdomen soft, non-tender, nondistended. Hepatic and splenic margins not palpable. MUSCULOSKELETAL: Extremities without clubbing, cyanosis, or edema. No obvious deformities. Patient complains of pain with movement of the shoulders, left hip , left knee, and ankle, put all my exam elicits is osteoarthritis type symptoms. There is no sign of acute fracture or dislocation, or sciatica. NEUROLOGICAL: Awake and alert. No obvious cranial nerve deficits. Motor grossly within normal limits. Five out of 5 muscle strength in the arms and legs. Normal speech. PSYCHIATRIC: Appropriate mood and affect; insight and judgment normal. Data Data Last Documented VS Vital Signs Date Time Temp Pulse Resp B/P (MAP) Pulse Ox O2 Delivery O2 Flow Rate FiO2 06/11/17 12:45 98.4 87 18 175/84 (114) 99 Orders Orders Ketorolac Inj (Toradol Inj) (06/11/17 13:15) [facility] Medical Decision Making Medical Screen Exam Complete: Yes Emergency Medical Condition: Yes Differential Diagnosis Shoulder pain. Hip pain. Knee pain. Ankle pain. Osteoarthritis. Chronic pain. Narrative Course Patient given Toradol 60 mg IM. Patient was started on meloxicam 7.5 mg twice daily #60 with no refill Patient is given tramadol 50 mg 1 every 6 hours as needed pain #20. Recommend follow-up with chronic pain management. Patient can follow-up with her primary care physician as needed. Diagnosis Primary Impression: Osteoarthritis of multiple joints Qualified Codes: M15.0 - Primary generalized (osteo)arthritis Referrals: Pain Management Patient Instructions: General Instructions, Osteoarthritis (ED) Additional Instructions: Patient given Toradol 60 mg IM. Patient was started on meloxicam 7.5 mg twice daily #60 with no refill Patient is given tramadol 50 mg 1 every 6 hours as needed pain #20. Recommend follow-up with chronic pain management. Patient can follow-up with her primary care physician as needed. Med/Other Pt SpecificInfo: Prescription(s) given Scripts Tramadol (Tramadol) 50 Mg Tab 50 MG PO Q6H Y for PAIN, #20 TAB 0 Refills Prov: Ryan Quinones MD 06/11/17 Meloxicam (Meloxicam) 7.5 Mg Tab 7.5 MG PO BID for Arthritis Pain for 30 Days, #60 TAB 0 Refills Prov: Ryan Quinones MD 06/11/17 Disposition: 01 DISCHARGE HOME Condition: Stable Mau Manley Jun 11, 2017 13:20
== END 2017-06-11 13:47 | disposition home or self-care (01) ==
LOC: NEPK 12:29
DX: M15.0 Primary generalized (osteo)arthritis (principal); M25.572 Pain in left ankle and joints of left foot; M25.552 Pain in left hip; G89.29 Other chronic pain; Z86.14 Personal history of Methicillin resistant Staphylococcus aureus infection; Z88.5 Allergy status to narcotic agent; I48.91 Unspecified atrial fibrillation; J45.909 Unspecified asthma, uncomplicated; R00.0 Tachycardia, unspecified; K21.9 Gastro-esophageal reflux disease without esophagitis; I10 Essential (primary) hypertension; F43.10 Post-traumatic stress disorder, unspecified
CPT/HCPCS: 96372; 99283; J1885

== ENCOUNTER 2017-06-16 09:55 | Emergency (ER) | payer OTHER, MEDICAID ==
[~2017-06-16] VITALS: Ht 154.9 cm; Wt 68.0 kg
[~2017-06-16 09:55] MED LIST changes: +MELO7.5T27 PO; +TRAM50TA PO
[2017-06-16 09:58] VITALS: BP 134/72; PULSE 80; RESP 17; TEMP 98; O2SAT 98
[2017-06-16] MEDS ORDERED: LOTR15T TOPICAL (10:06)
--- NOTE | 2017-06-16 10:12 | PD ---
HPI Chief Complaint: Skin Problem Time Seen by Provider: 10:00 Travel History International Travel<30 days: No Contact w/Intl Traveler<30days: No Traveled to known affect area: No History of Present Illness HPI 71-year-old female presents emergency department with rash to the anterior lower abdomen along a skin fold which is been present for the last 2 weeks. She states this is uncomfortable and itchy at the same time. She denies fever, chills, or abdominal pain. No changes in her bowels or bladder. She states the area is been weeping, and uncomfortable. Pain is 4 out of 10. It is enlarging over the last week. Patient has history of MRSA, is allergic to insect venom, oxycodone, and pollen. PFSH Past Medical History Hx Anticoagulant Therapy: No Arthritis: Yes Asthma: Yes Atrial Fibrillation: Yes Bipolar Disorder: Yes (PT STATES SHE IS UNSURE? ) Anxiety: No Depression: No Heart Rhythm Problems: Yes (afib, TACHYCARDIA) Cancer: No Cardiac Catheterization: No Cardiovascular Problems: Yes (TACHYCARDIA, AFIB) High Cholesterol: No Chemotherapy: No Chest Pain: Yes Congestive Heart Failure: No COPD: No Cerebrovascular Accident: No Diabetes: No Diminished Hearing: No GERD: Yes Genitourinary: No Headaches: Yes (MIGRAINES) Hepatitis: Yes ("YELLOW JAUNDICE") Hypertension: Yes Immune Disorder: No Implanted Vascular Access Dvce: No Musculoskeletal: Yes (STATES LEFT FOOT FX IN JUNE 01 AND CHRONIC BACK PAIN) Neurologic: Yes Psychiatric: Yes (BIPOLAR, PTSD) Reproductive: No Respiratory: Yes (ASTHMA) Immunizations Current: Yes (FLU 2009) Migraines: Yes Myocardial Infarction: No Seizures: No Sleep Apnea: No Thyroid Disease: No ?: Not Menopausal: Yes Tubal Ligation: Yes Past Surgical History Abdominal Surgery: Yes (EXPLORATORY SURG) Cholecystectomy: Yes Coronary Artery Bypass Graft: No Hysterectomy: No Other Surgery: Yes (BILATERAL BREAST REDUCTION, LIPOMA REMOVED FROM NECK) Social History Alcohol Use: No Tobacco Use: No Substance Use: No Allergies-Medications (Allergen,Severity, Reaction): Coded Allergies: insect venom (Verified Allergy, Intermediate, Swelling, 06/16/17) BITE CEDENO, SWELLING AND BURNING oxycodone (Verified Allergy, Intermediate, vomiting , 06/16/17) pollen extracts (Verified Allergy, Intermediate, Sneezing, 06/16/17) *MDRO Multi-Drug Resistant Organism (Verified Adverse Reaction, Unknown, ) MRSA (abdomen wound) - 09/2012 MRSA PCR Screen NEGATIVE - 03/03/2015 Reported Meds & Prescriptions Reported Meds & Active Scripts Active Lotrisone Topical (Betamethasone/Clotrimazole) 1-0.05% Cream 1 Applic TOPICAL BID Tramadol (Tramadol HCl) 50 Mg Tab 50 Mg PO Q6H PRN Meloxicam 7.5 Mg Tab 7.5 Mg PO BID 30 Days Sertraline (Sertraline HCl) 50 Mg Tab 50 Mg PO DAILY Propranolol (Propranolol HCl) 10 Mg Tab 10 Mg PO BID Walker with Front Wheels (Device) 1 Mis Mis Ea .ROUTE DIRECTED Diclofenac Sodium DR (Diclofenac Sodium) 25 Mg Tabdr 25 Mg PO BID Reported Nitrostat SL (Nitroglycerin) 0.4 Mg Subl 0.4 Mg SL DIRECTED PRN 1 tablet under the tongue as needed for chest pain. Repeat every 5 minutes for a total of 3 DOSES or call 911 if NO relief. Review of Systems General / Constitutional: No: Fever Eyes: No: Visual changes HENT: No: Headaches Cardiovascular: No: Chest Pain or Discomfort Respiratory: No: Shortness of Breath Gastrointestinal: No: Abdominal Pain Genitourinary: No: Dysuria Musculoskeletal: No: Pain Skin: Positive Rash, Positive Itching Neurologic: No: Weakness Psychiatric: No: Depression Endocrine: No: Polydipsia Hematologic/Lymphatic: No: Easy Bruising Physical Exam Narrative GENERAL: Patient is in no acute distress per SKIN: Warm and dry. Normal color. Normal turgor. Patient has well-demarcated oval/oblong erythematous with white central clearing type rash to the anterior lower abdomen along the belt line within 1 of her skin folds. It measures 10 cm x 4 cm. There is no sign of deep abscess or lymphangitis. HEAD: Atraumatic. Normocephalic. EYES: Pupils equal and round. No scleral icterus. No injection or drainage. ENT: No nasal bleeding or discharge. Mucous membranes pink and moist. Pharynx is clear. Airways patent. NECK: Trachea midline. Supple and nontender CARDIOVASCULAR: Regular rate and rhythm. RESPIRATORY: No accessory muscle use. Clear to auscultation. Breath sounds equal bilaterally. GASTROINTESTINAL: Abdomen soft, non-tender, nondistended. Hepatic and splenic margins not palpable. MUSCULOSKELETAL: Extremities without clubbing, cyanosis, or edema. No obvious deformities. NEUROLOGICAL: Awake and alert. No obvious cranial nerve deficits. Motor grossly within normal limits. Five out of 5 muscle strength in the arms and legs. Normal speech. PSYCHIATRIC: Appropriate mood and affect; insight and judgment normal. Data Data Last Documented VS Vital Signs Date Time Temp Pulse Resp B/P (MAP) Pulse Ox O2 Delivery O2 Flow Rate FiO2 06/16/17 09:58 98.0 80 17 134/72 (92) 98 MDM Medical Decision Making Medical Screen Exam Complete: Yes Emergency Medical Condition: Yes Differential Diagnosis Dermatophytosis. Ringworm. Tinea. Narrative Course Patient will be treated with Lotrisone ointment to the area bite twice daily for the next 2 weeks. Patient should try to keep the area clean and dry otherwise. Patient to follow-up with her primary care symptoms do not improve or worsen as needed. Diagnosis Primary Impression: Tinea Referrals: Primary Care Physician Patient Instructions: General Instructions, Gavin Cage (ED) Additional Instructions: Patient will be treated with Lotrisone ointment to the area bite twice daily for the next 2 weeks. Patient should try to keep the area clean and dry otherwise. Patient to follow-up with her primary care symptoms do not improve or worsen as needed. Med/Other Pt SpecificInfo: Prescription(s) given Scripts Betamethasone-Clotrimazole Topical (Lotrisone Topical) 1-0.05% Cream 1 APPLIC TOPICAL BID for Fungal infection, #45 GM 0 Refills Prov: Lucero Jensen MD 06/16/17 Disposition: 01 DISCHARGE HOME Condition: Stable Mau Manley Jun 16, 2017 10:12
== END 2017-06-16 11:00 | disposition home or self-care (01) ==
LOC: NEPD 09:55
DX: B35.9 Dermatophytosis, unspecified (principal); I10 Essential (primary) hypertension; I48.91 Unspecified atrial fibrillation; J45.909 Unspecified asthma, uncomplicated; F31.9 Bipolar disorder, unspecified; Z86.14 Personal history of Methicillin resistant Staphylococcus aureus infection; Z88.5 Allergy status to narcotic agent; Z79.899 Other long term (current) drug therapy
CPT/HCPCS: 99283

== ENCOUNTER 2018-02-26 02:34 | Observation (INO) ==
--- NOTE | 2018-02-26 08:09 | ED ---
HPI General Chief complaint: Extremity Problem,Nontraumatic Stated complaint: pt states pain Time Seen by Provider: 02/26/18 07:53 History of Present Illness HPI narrative: 72-year-old female with a history of tachycardia and chronic pain presents to the emergency department by EMS for evaluation of lower extremity pain that began last night. Patient states that she has pain and swelling in her lower legs that began last night. States that she noticed it after she was walking [place] [address]. Pain is located from her thighs down to her toes. States that the pain is constant. Aggravated with movement and palpation. States that the left ankle is more swollen and painful since she rolled it a few weeks ago. She also is complaining of left anterior chest pain that began last night. Describes it as constant, sore and aching. Denies any aggravating or alleviating factors. States she has had pain like this before in her chest. Denies any history of [place], states that she does have a history of tachycardia and is supposed to be on medications but has not had the funds to get these filled. Denies any shortness of breath, difficulty breathing , nausea, vomiting, abdominal pain, numbness or tingling, weakness. No other complaints. Related Data Previous Rx's Medication Instructions Recorded propranolol 10 mg PO BID #20 tab 11/15/17 Allergies Allergy/AdvReac Type Severity Reaction Status Date / Time insect venom Allergy Intermediate Swelling Verified 02/11/18 02:25 oxycodone Allergy Intermediate vomiting Verified 02/11/18 02:25 pollen extracts Allergy Intermediate Sneezing Verified 02/11/18 02:25 *MDRO Multi-Drug Resistant AdvReac Unknown UNKOWN Uncoded 12/18/17 15:08 Organism Review of Systems ROS: all other systems reviewed are negative [facility] Social History Social History Substance History: No History of Abuse Second Hand Smoke Exposure: No Smoking Status: Former smoker Tobacco Type: Cigarettes How Often Do You Have a Drink Containing Alcohol: Never Recent Travel in [facility] within the Last 8 Weeks: No Recent Out of Country Travel within the Last 8 Weeks: No Immunization History Tetanus Immunization: Unsure Exam Narrative Exam Narrative: GENERAL: Disheveled female patient in no acute distress who is nontoxic appearing. SKIN: Warm and dry. HEAD: Normocephalic and atraumatic. EYES: No injection, drainage, or hyphema noted. PERRLA. EOMI. ENT: No nasal drainage noted. Oropharynx is clear. NECK: Supple and the trachea is midline. CARDIOVASCULAR: Regular rate and rhythm. RESPIRATORY: Breath sounds are equal bilaterally with no accessory muscle use, wheezing, rhonchi, or crackles. CHEST: Tenderness to palpation of anterior chest wall. No obvious deformities or step-offs noted. GASTROINTESTINAL: Abdomen is soft, non-tender, and nondistended. MUSCULOSKELETAL: Swelling noted to left ankle and foot. Mild swelling noted to right ankle and foot. Patient has tenderness to palpation from thighs to feet, including calves. No obvious deformities, cyanosis, or ecchymosis is present throughout the upper and lower extremities. Patient has full range of motion without any signs of neurovascular compromise. Distal pulses are 2+ throughout. NEUROLOGICAL: Awake, alert, and oriented. Normal speech and gait. Cranial nerves are grossly intact. Course Initial Documented Vital Signs Temperature 97.9 F 02/26/18 03:32 Pulse Rate 97 H 02/26/18 03:32 Respiratory Rate 16 02/26/18 03:32 Blood Pressure 119/57 L 02/26/18 03:32 Pulse Oximetry 100 02/26/18 03:32 Last Documented Vital Signs Temperature 97.9 F 02/26/18 03:32 Pulse Rate 81 02/26/18 10:42 Respiratory Rate 16 02/26/18 10:42 Blood Pressure 144/74 H 02/26/18 10:42 Pulse Oximetry 100 02/26/18 10:42 Medical Decision Making [facility] Narrative Medical decision making narrative: 72-year-old female with a history of tachycardia and chronic pain presents to the emergency department by EMS for evaluation of lower extremity edema and pain as well as chest pain. Patient is afebrile, vital signs are stable. On physical examination she does have mild swelling to bilateral ankles and feet, worse on the left side. Reports a prior injury several weeks ago to the left ankle. I did review the EMR which shows she was seen here last week for left foot and ankle injury and had a foot x-ray which was negative for any acute bony abnormalities, will do an ankle series to confirm no fracture. We will also do ultrasound of the lower extremities to rule out DVT. Patient is complaining of chest pain and therefore IV access is obtained, labs have been drawn and sent. Patient is placed on cardiac telemetry and pulse oximetry monitoring. CBC is unremarkable. CMP shows hypokalemia with potassium 3.1, otherwise unremarkable. Troponin is less than 0.02. X-ray of the left ankle shows soft tissue swelling without acute fracture or bony abnormality. Chest x-ray is negative. Ultrasound of the bilateral lower extremities are negative for DVT. Patient has remained stable while here in the emergency department. Patient administered potassium 40 mEq orally. This is the second time the patient has been here with chest pain in the last month. She will be kept in chest pain center for repeat cardiac enzymes and possible stress testing. Medical Screen Exam Complete: Yes Emergency Medical Condition: Yes Differential Diagnosis Differential Diagnosis: Ankle sprain versus fracture versus DVT versus dependent edema versus CHF versus ACS unlikely versus chest wall pain Lab Data Result diagrams: 02/26/18 08:25 02/26/18 08:25 Lab Results 02/26/18 02/26/18 02/26/18 Range/Units 08:25 08:25 08:25 WBC 6.9 (4.0-11.0) th/mm3 RBC 4.18 (4.00-5.30) mil/mm3 Hgb 11.7 (11.6-15.3) gm/dL Hct 34.4 L (35.0-46.0) % MCV 82.4 (80.0-100.0) fL MCH 28.1 (27.0-34.0) pg MCHC 34.1 (32.0-36.0) % RDW 15.2 (11.6-17.2) % Plt Count 269 (150-450) th/mm3 MPV 8.1 (7.0-11.0) fL Neut % (Auto) 55.7 (16.0-70.0) % Lymph % (Auto) 33.2 (9.0-44.0) % Barry % (Auto) 8.2 H (0.0-8.0) % Eos % (Auto) 2.5 (0.0-4.0) % Baso % (Auto) 0.4 (0.0-2.0) % Neut # (Auto) 3.9 (1.8-7.7) th/mm3 Lymph # (Auto) 2.3 (1.0-4.8) th/mm3 Barry # (Auto) 0.6 (0.0-0.9) th/mm3 Eos # (Auto) 0.2 (0.0-0.4) th/mm3 Baso # (Auto) 0.0 (0.0-0.2) th/mm3 WBC Differential . Differential Comment Auto diff final Sodium 140 (136-145) meq/L Potassium 3.1 L (3.5-5.1) meq/L Chloride 108 H (98-107) meq/L Carbon Dioxide 24.1 (21.0-32.0) meq/L Anion Gap 8 (5-15) meq/L BUN 18 (7-18) mg/dL Creatinine 0.65 (0.50-1.00) mg/dL Estimated GFR 89 (>89) mL/min Random Glucose 95 (74-106) mg/dL Calcium 8.6 (8.5-10.1) mg/dL Total Bilirubin 0.5 (0.2-1.0) mg/dL AST 21 (15-37) U/L ALT 17 (10-53) U/L Alkaline Phosphatase 102 (45-117) U/L Troponin I Less than 0.02 L (0.02-0.05) ng/mL B-Natriuretic Peptide 12 (0-100) pg/mL Total Protein 7.3 (6.4-8.2) g/dL Albumin 3.4 (3.4-5.0) g/dL Imaging Data Radiologist's impression: Chest X-Ray 02/26/18 08:05 CONCLUSION: No acute cardiopulmonary disease Venous Doppler Study 02/26/18 08:05 CONCLUSION: 1. The study is negative for bilateral lower extremity deep venous thrombosis. Ankle X-Ray 02/26/18 08:09 CONCLUSION: 1. Soft tissue swelling without acute fracture. 2. Small plantar calcaneal spur. Discharge Plan Discharge Disposition Patient Disposition: ED Admit(ED Internal Use Only) Discharge Condition Condition: Stable Discharge Order Discharge Orders: ED Use Only Admit Order (Routine); Ordered 02/26/18 Ordered By: Mona Briggs Discharge Details Diagnosis: Chest pain, Left ankle sprain, Hypokalemia Physicians Team ED Provider: Filippo Sandoval ED Midlevel Provider: Mona Briggs Primary Care Provider: UNKNOWN, Rxs /Orders / Referrals /Forms Prescriptions: No Action propranolol 10 mg tablet 10 mg PO BID Qty: 20 RF: 0 Discharge Interventions Interventions: Vital Signs Last Done: 02/26/18 07:33 Status ED Status: With Doctor
[2018-02-26 08:48] LABS: White Blood Count 6.9 th/mm3 (4.0-11.0)
[2018-02-26 08:49] LABS: Baso % (Auto) 0.4 % (0.0-2.0); Eos # (Auto) 0.2 th/mm3 (0.0-0.4); Eos % (Auto) 2.5 % (0.0-4.0); Hematocrit 34.4 % (35.0-46.0); Hemoglobin 11.7 gm/dL (11.6-15.3); Lymph # (Auto) 2.3 th/mm3 (1.0-4.8); Lymph % (Auto) 33.2 % (9.0-44.0); Mean Corpuscular HGB Conc 34.1 % (32.0-36.0); Mean Corpuscular Hemoglobin 28.1 pg (27.0-34.0); Mean Corpuscular Volume 82.4 fL (80.0-100.0); Mean Platelet Volume 8.1 fL (7.0-11.0); Mono # (Auto) 0.6 th/mm3 (0.0-0.9); Mono % (Auto) 8.2 % (0.0-8.0); Neut # (Auto) 3.9 th/mm3 (1.8-7.7); Neut % (Auto) 55.7 % (16.0-70.0); Platelet Count 269 th/mm3 (150-450); Red Blood Count 4.18 mil/mm3 (4.00-5.30); Red Cell Distribution Width 15.2 % (11.6-17.2)
--- NOTE | 2018-02-26 08:59 | XR ---
EXAM DATE: 02/26/2018 8:54 AM EST AGE/SEX: 72 years / Female INDICATIONS: Chest pains with pressure. CLINICAL DATA: This is the patient's initial encounter. Patient reports that signs and symptoms have been present for 2 days and indicates a pain score of 3/10. MEDICAL/SURGICAL HISTORY: Cardiovascular disease. None. COMPARISON: [facility] – [place], CHEST 1V SINGLE AP, 02/11/2018. . FINDINGS: A single AP view of the chest demonstrates the lungs to be symmetrically aerated without evidence of mass, infiltrate or effusion. The cardiomediastinal contours are unremarkable. Osseous structures a re intact. CONCLUSION: No acute cardiopulmonary disease Electronically signed by: Doyle Otero MD Board Certified Radiologist 02/26/2018 8:58 AM EST
[2018-02-26 09:05] LABS: Alanine Aminotransferase 17 U/L (10-53); Albumin 3.4 g/dL (3.4-5.0); Anion Gap 8 meq/L (5-15); Aspartate Aminotransferase 21 U/L (15-37); Blood Urea Nitrogen 18 mg/dL (7-18); Calcium 8.6 mg/dL (8.5-10.1); Carbon Dioxide 24.1 meq/L (21.0-32.0); Chloride 108 meq/L (98-107); Glomerular Filtration Rate 89 mL/min (>89); Glucose,Random 95 mg/dL (74-106); Potassium 3.1 meq/L (3.5-5.1); Sodium 140 meq/L (136-145)
[2018-02-26 09:10] LABS: Alkaline Phosphatase 102 U/L (45-117); Total Protein 7.3 g/dL (6.4-8.2)
--- NOTE | 2018-02-26 09:10 | XR ---
EXAM DATE: 02/26/2018 9:02 AM EST AGE/SEX: 72 years / Female INDICATIONS: Twisted ankle 1 month ago, still swelling, bruising, difficulty walking. CLINICAL DATA: This is the patient's initial encounter. Patient reports that signs and symptoms have been present for 1 month and indicates a pain score of 10/10. MEDICAL/SURGICAL HISTORY: . . COMPARISON: [facility] – [place], FOOT COMPLETE LEFT 3V, 02/16/2018. . FINDINGS: Bony structures are intact and in normal alignment. Joints are intact without dislocation or signifi cant arthropathy. Small plantar calcaneal spur. Osseous density is normal. Soft tissues are promine nt. No radiopaque foreign bodies seen. CONCLUSION: 1. Soft tissue swelling without acute fracture. 2. Small plantar calcaneal spur. Electronically signed by: Doyle Otero MD Board Certified Radiologist 02/26/2018 9:09 AM EST
--- NOTE | 2018-02-26 10:39 | US ---
EXAM DATE: 02/26/2018 10:35 AM EST AGE/SEX: 72 years / Female INDICATIONS: Bilateral lower extremity pain and swelling. CLINICAL DATA: This is the patient's initial encounter. Patient reports that signs and symptoms have been present for 1 month and indicates a pain score of 10/10. MEDICAL/SURGICAL HISTORY: . Former smoker. Chronic neck and back pain. Migraine. . Breast re construction. Cholecystectomy. COMPARISON: No prior exams available for comparison. TECHNIQUE: Venous ultrasound of both lower extremities was performed from the inguinal ligament to t he proximal calf. Real-time, color Doppler and spectral tracing, compression and augmentation techni ques were used. FINDINGS: Right Leg: Normal compression of the deep venous system from the inguinal region to the proximal cheryl f. No echogenic clot is seen. Normal response of the venous system to augmentation and respiration. Left Leg: Normal compression of the deep venous system from the inguinal region to the proximal calf . No echogenic clot is seen. Normal response of the venous system to augmentation and respiration. Other: None. CONCLUSION: 1. The study is negative for bilateral lower extremity deep venous thrombosis. Electronically signed by: Doyle Otero MD Board Certified Radiologist 02/26/2018 10:38 AM EST
[2018-02-26 13:13] LABS: Creatine Kinase 75 U/L (26-192)
--- NOTE | 2018-02-26 13:31 | P.HPCA ---
History of Present Illness Primary Care Physician: UNKNOWN Chief Complaint: Chest pain and bilateral leg pain History of Present Illness: This is a 72-year-old female with history of tobacco abuse, hyperlipidemia, tachycardia, chronic bilateral leg pain, and chronic chest pain that presents to ED via EMS to be evaluated for bilateral lower extremity pain and chest pain. She states that her legs have been painful for many months and was seen recently about 6 or 7 weeks ago while in [place] for the same thing. States she was admitted overnight and discharged the next day. She is really not aware of what they found but was discharged. She also states that she had twisted her left ankle couple to 3 weeks ago and so that leg has been more bothersome than the right. Patient also is complaining of a left upper chest discomfort that is rated as a 2-3 out of 10. Is been there constantly for years. States she has had this evaluated in the past. She times short of breath with it. No nausea or diaphoresis. Asked what was different last evening to bring her in for reevaluation, she states "I was not able to walk back to the group home." History of tachycardia and hyperlipidemia however she states that they have been trying to control with diet. Denies hypertension, diabetes, and known CAD. Patient smokes on average 1/2 pack of cigarettes daily for 56 years. Denies alcohol or illicit drug use. She states that her parents had some type of heart problems but does not know anything more specific. States they lived to be in their 70s. - Diagnosis (1) Chest pain (2) Hyperlipidemia (3) Tobacco abuse (4) Chronic pain Review of Systems General: Patient denies fevers, chills. HEENT: Patient denies headache, sore throat, difficulty swallowing. Cardiovascular: Has the chest discomfort as mentioned above. Denies sensation of heart beating rapidly or irregularly. No syncope. Denies diaphoresis. Respiratory: She has been intermittently short of breath. Denies inspirational chest discomfort. Denies coughing wheezing or hemoptysis. GI: Patient denies nausea, vomiting, diarrhea, abdominal pain, bloody stools. Musculoskeletal: Complains of bilateral lower extremity pain that has been there for several months. Complains of left ankle pain after twisting it 2-3 weeks ago. At times has noticed some swelling in her legs. Neurovascular: Patient denies numbness, tingling, weakness in extremities. Denies headache. Endocrine: Denies polyuria and polydipsia. Hematologic: Denies easy bruising. Skin: Denies rash or itching. PMFSH - History History Provided By: Patient - Medical History Medical History: Medical History (Last Reviewed 02/16/18 @ 22:24 by Melvi Wood) Fast heart beat (Chronic) Chronic pain (Chronic) Migraine - Surgical History Surgical History: Surgical History (Last Reviewed 02/16/18 @ 22:24 by Melvi Wood) H/O breast reconstruction Hx of cholecystectomy - Tobacco History Second Hand Smoke Exposure: No Tobacco Use In Past 30 Days: No Smoking Status: Former smoker Tobacco Type: Cigarettes - Alcohol History How Often Do You Have a Drink Containing Alcohol: Never - Substance Use History Substance History: No History of Abuse - Travel History Recent Travel in the [place] Within the Last 8 Weeks: No Recent Travel Out of the Country Within the Last 8 Weeks: No - Immunization History Tetanus Immunization: Unsure Medications and Allergies Active Medications: Active Medications Ondansetron HCl (Zofran Inj) 4 mg IV.PUSH Q6H PRN PRN Reason: NAUSEA Sodium Chloride (Ns Flush) 2 ml IV.FLUSH BID KIERRA Sodium Chloride (Ns Flush) 2 ml IV.FLUSH PRN PRN PRN Reason: FLUSH AFTER USING IV ACCESS Allergies Allergy/AdvReac Type Severity Reaction Status Date / Time insect venom Allergy Intermediate Swelling Verified 02/11/18 02:25 oxycodone Allergy Intermediate vomiting Verified 02/11/18 02:25 pollen extracts Allergy Intermediate Sneezing Verified 02/11/18 02:25 *MDRO Multi-Drug Resistant AdvReac Unknown UNKOWN Uncoded 12/18/17 15:08 Organism Exam Vital signs: Vital Signs 02/26/18 03:32 02/26/18 07:33 02/26/18 08:09 Temperature 97.9 F Pulse Rate 97 H 84 81 Respiratory Rate 16 16 Blood Pressure 119/57 L 135/76 Pulse Oximetry 100 100 02/26/18 08:10 02/26/18 10:42 Temperature Pulse Rate 81 Respiratory Rate 16 Blood Pressure 144/74 H Pulse Oximetry 100 100 Intake & Output 02/25/18 02/26/18 02/26/18 18:59 06:59 18:59 Weight 72.575 kg Narrative: GENERAL: This is a well-nourished, well-developed patient, in no apparent distress. Patient speaks in clear complete sentences. Patient is pleasant. HEENT: Head is atraumatic and normocephalic. Neck is supple without lymphadenopathy and trachea is midline. No JVD or carotid bruits. CARDIOVASCULAR: Regular rate and rhythm without murmurs, gallops, or rubs. RESPIRATORY: Clear to auscultation. Breath sounds equal bilaterally. No wheezes , rales, or rhonchi. Chest wall is tender even while placing stethoscope on chest wall for auscultation. No use of accessory muscles. GASTROINTESTINAL: Abdomen is nontender, nondistended. Abdomen soft. No obvious pulsatile mass or bruit. No CVA tenderness. Strong femoral pulses bilaterally. Normal bowel sounds in all quadrants. MUSCULOSKELETAL: Patient is moving upper and lower extremities freely. No calf tenderness or edema, no Homans sign. Strong pulses in upper and lower extremities. NEUROLOGICAL: Patient is alert and oriented. Cranial nerves 2-12 are grossly intact. No focal deficits and speech is clear. SKIN: No rash and turgor is normal. Results 02/26/18 08:25 02/26/18 08:25 Cardiac Enzymes 02/26/18 02/26/18 02/26/18 Range/Units 08:25 08:25 12:15 AST 21 (15-37) U/L Troponin I Less than 0.02 L Less than 0.02 L (0.02-0.05) ng/mL B-Natriuretic Peptide 12 (0-100) pg/mL Coagulation 02/26/18 Range/Units 08:25 B-Natriuretic Peptide 12 (0-100) pg/mL CBC 02/26/18 Range/Units 08:25 WBC 6.9 (4.0-11.0) th/mm3 RBC 4.18 (4.00-5.30) mil/mm3 Hgb 11.7 (11.6-15.3) gm/dL Hct 34.4 L (35.0-46.0) % Plt Count 269 (150-450) th/mm3 Neut # (Auto) 3.9 (1.8-7.7) th/mm3 Lymph # (Auto) 2.3 (1.0-4.8) th/mm3 [place] # (Auto) 0.6 (0.0-0.9) th/mm3 Eos # (Auto) 0.2 (0.0-0.4) th/mm3 Baso # (Auto) 0.0 (0.0-0.2) th/mm3 Comprehensive Metabolic Panel 02/26/18 Range/Units 08:25 Sodium 140 (136-145) meq/L Potassium 3.1 L (3.5-5.1) meq/L Chloride 108 H (98-107) meq/L Carbon Dioxide 24.1 (21.0-32.0) meq/L BUN 18 (7-18) mg/dL Creatinine 0.65 (0.50-1.00) mg/dL Calcium 8.6 (8.5-10.1) mg/dL AST 21 (15-37) U/L ALT 17 (10-53) U/L Alkaline Phosphatase 102 (45-117) U/L Total Protein 7.3 (6.4-8.2) g/dL Albumin 3.4 (3.4-5.0) g/dL Intake and Output 02/25/18 02/26/18 02/26/18 22:59 06:59 14:59 Other: Weight 72.575 kg - Imaging and Cardiology Imaging: Impressions Chest X-Ray 02/26/18 08:05 CONCLUSION: No acute cardiopulmonary disease Venous Doppler Study 02/26/18 08:05 CONCLUSION: 1. The study is negative for bilateral lower extremity deep venous thrombosis. Ankle X-Ray 02/26/18 08:09 CONCLUSION: 1. Soft tissue swelling without acute fracture. 2. Small plantar calcaneal spur. EKG interpretations - EKG EKG shows: sinus rhythm (Initial EKG is sinus rhythm without significant ST segment depressions or elevations.) Caprini VTE Risk Assessment Caprini VTE Risk Assessment: Moderate/High Risk (score >= 2) Caprini Risk Assessment Model: Point Value = 1 Point Value = 2 Point Value = 3 Point Value = 5 Age 41-60 Minor surgery BMI > 25 kg/m2 Swollen legs Varicose veins or History of unexplained or recurrent spontaneous Oral contraceptives or hormone replacement Sepsis (< 1 month) Serious lung disease, including pneumonia (< 1 month) Abnormal pulmonary function Acute myocardial infarction Congestive heart failure (< 1 month) History of inflammatory bowel disease Medical patient at bed rest Age 61-74 Arthroscopic surgery Major open surgery (> 45 min) Laparoscopic surgery (> 45 min) Malignancy Confined to bed (> 72 hours) Immobilizing plaster cast Central venous access Age >= 75 History of VTE Family history of VTE Factor V Leiden Prothrombin [id number] Lupus anticoagulant Anticardiolipin antibodies Elevated serum homocysteine Heparin-induced thrombocytopenia Other congenital or acquired thrombophilia Stroke (< 1 month) Elective arthroplasty Hip, pelvis, or leg fracture Acute spinal cord injury (< 1 month) Prophylaxis Regimen: Total Risk Factor Score Risk Level Prophylaxis Regimen 0-1 Low Early ambulation 2 Moderate Order ONE of the following: *Sequential Compression Device (SCD) *Heparin 5000 units SQ BID 3-4 Higher Order ONE of the following medications: *Heparin 5000 units SQ TID *Enoxaparin/Lovenox 40 mg SQ daily (WT < 150 kg, CrCl > 30 mL/min) *Enoxaparin/Lovenox 30 mg SQ daily (WT < 150 kg, CrCl > 10-29 mL/min) *Enoxaparin/Lovenox 30 mg SQ BID (WT < 150 kg, CrCl > 30 mL/min) AND/OR *Sequential Compression Device (SCD) 5 or more Highest Order ONE of the following medications: *Heparin 5000 units SQ TID (Preferred with Epidurals) *Enoxaparin/Lovenox 40 mg SQ daily (WT < 150 kg, CrCl > 30 mL/min) *Enoxaparin/Lovenox 30 mg SQ daily (WT < 150 kg, CrCl > 10-29 mL/min) *Enoxaparin/Lovenox 30 mg SQ BID (WT < 150 kg, CrCl > 30 mL/min) AND *Sequential Compression Device (SCD) Assessment and Plan - Assessment (1) Chest pain Code(s): R07.9 - Chest pain, unspecified Status: Acute (2) Hyperlipidemia Code(s): E78.5 - Hyperlipidemia, unspecified Status: Acute (3) Tobacco abuse Code(s): Z72.0 - Tobacco use Status: Acute (4) Chronic pain Code(s): G89.29 - Other chronic pain Status: Chronic - Plan * Chest pain: Patient will continue to have serial cardiac enzymes and EKGs for ruling out purposes. States she has had this discomfort for years. Upon reviewing records, patient had a nonischemic Lexiscan at this facility in 2015. She will be seen by Dr. Aguilar of cardiology in the chest pain center. She will have a Lexiscan if ruled out. She will be discharged home if stress test is nonischemic with instructions to follow-up with PCP and return to ED for interval issues. * Tobacco abuse: Patient counseled on the importance of smoking cessation. * Chronic pain: Patient views anti-inflammatories as needed. Follow-up with PCP. * Hyperlipidemia: Patient states she has not needed medication for this for some time and has been managing with diet. She is to follow-up with PCP and have this reevaluated to see if this still should be the plan. Patient is stable at this time. She is agreeable to this plan. (1) Chest pain Qualifiers: Chest pain type: unspecified Qualified Code(s): R07.9 - Chest pain, unspecified
[2018-02-26 15:27] LABS: Creatine Kinase 67 U/L (26-192)
[2018-02-27 03:42] VITALS: BP 127/60; RESP 18; TEMP 98.4
[2018-02-27 05:54] VITALS: PULSE 70
[2018-02-27] MEDS ORDERED: Regadenoson Inj 0.4 MG/5 ML Syringe IV.PUSH ONE (08:46)
--- NOTE | 2018-02-27 10:10 | NM ---
EXAM DATE: 02/27/2018 9:59 AM EST AGE/SEX: 72 years / Female INDICATIONS:Angina. . Chronic chest pain. CLINICAL DATA: This is the patient's initial encounter. Patient reports that signs and symptoms have been present for 1 month and indicates a pain score of 4/10. MEDICAL/SURGICAL HISTORY: . Chronic neck and back pain, tachycardia. Cholecystectomy. Breast r econstruction. [place] [facility] [place]ARM [place] 04/04/[place]. . DOSE: 8.5 mCi Tc 99m Myoview at rest 26.5 mCi [id number] at stress 0.4 mg Lexiscan STRESS SYMPTOMS: None. EJECTION FRACTION: 69 % TECHNIQUE: The patient underwent pharmacologic stress with infusion of prescribed dose. Continuous ECG tracing was monitored during stress. Gated SPECT imaging was performed after stress and conventi onal SPECT imaging was performed at rest. The examination was performed on a SPECT/CT scanner, both attenuation and non-corrected datasets were reviewed. FINDINGS: Distribution: The maximum perfused segment at stress is in the anterolateral wall. Perfusion Study: The pattern of perfusion at stress is within normal limits. Gated Study: There are intact wall motion and wall thickening without hypokinetic or dyskinetic segm ents. The ejection fraction is calculated at 69%. RISK CATEGORY: Low (<1% Annual Mortality Rate) CONCLUSION: 1. . Unremarkable study. Electronically signed by: Olinda Clark MD Board Certified Radiologist 02/27/2018 10:09 AM EST
--- NOTE | 2018-02-27 10:17 | P.PNCA ---
Subjective Interval history: Offers no complaints. Denies chest pain. Medications and Allergies Active Medications: Active Medications Ondansetron HCl (Zofran Inj) 4 mg IV.PUSH Q6H PRN PRN Reason: NAUSEA Sodium Chloride (Ns Flush) 2 ml IV.FLUSH BID KIERRA Last Admin: 02/27/18 10:07 Dose: 2 ml Sodium Chloride (Ns Flush) 2 ml IV.FLUSH PRN PRN PRN Reason: FLUSH AFTER USING IV ACCESS Allergies Allergy/AdvReac Type Severity Reaction Status Date / Time insect venom Allergy Intermediate Swelling Verified 02/11/18 02:25 oxycodone Allergy Intermediate vomiting Verified 02/11/18 02:25 pollen extracts Allergy Intermediate Sneezing Verified 02/11/18 02:25 *MDRO Multi-Drug Resistant AdvReac Unknown UNKOWN Uncoded 12/18/17 15:08 Organism Physical Exam Vital signs: Vital Signs 02/26/18 10:42 02/26/18 12:00 02/26/18 16:00 Temperature 98.5 F 98.6 F Pulse Rate 81 98 H 90 Respiratory Rate 16 22 18 Blood Pressure 144/74 H 150/68 H 137/67 Pulse Oximetry 100 100 97 02/26/18 19:48 02/26/18 20:00 02/26/18 23:31 Temperature 98.7 F 98.1 F Pulse Rate 86 68 68 Respiratory Rate 16 17 Blood Pressure 121/58 L 128/64 Pulse Oximetry 97 96 02/27/18 03:41 02/27/18 04:03 Temperature 98.4 F Pulse Rate 79 70 Respiratory Rate 18 Blood Pressure 127/60 Pulse Oximetry 97 Intake & Output 02/26/18 02/27/18 02/27/18 18:59 06:59 18:59 Weight 72 kg Other: Weight On Admission 72 kg Narrative: General: No apparent distress. Cardiac: Regular rate and rhythm. Respiratory: Lungs clear to auscultate. GI: Abdomen soft and nontender. Bowel sounds normal. Musculoskeletal: No calf tenderness or edema. No Homans sign. Results 02/26/18 08:25 02/26/18 08:25 Cardiac Enzymes 02/26/18 02/26/18 02/26/18 Range/Units 08:25 08:25 12:15 AST 21 (15-37) U/L Troponin I Less than 0.02 L Less than 0.02 L (0.02-0.05) ng/mL B-Natriuretic Peptide 12 (0-100) pg/mL 02/26/18 Range/Units 14:41 AST (15-37) U/L Troponin I Less than 0.02 L (0.02-0.05) ng/mL B-Natriuretic Peptide (0-100) pg/mL Coagulation 02/26/18 Range/Units 08:25 B-Natriuretic Peptide 12 (0-100) pg/mL CBC 02/26/18 Range/Units 08:25 WBC 6.9 (4.0-11.0) th/mm3 RBC 4.18 (4.00-5.30) mil/mm3 Hgb 11.7 (11.6-15.3) gm/dL Hct 34.4 L (35.0-46.0) % Plt Count 269 (150-450) th/mm3 Neut # (Auto) 3.9 (1.8-7.7) th/mm3 Lymph # (Auto) 2.3 (1.0-4.8) th/mm3 [place] # (Auto) 0.6 (0.0-0.9) th/mm3 Eos # (Auto) 0.2 (0.0-0.4) th/mm3 Baso # (Auto) 0.0 (0.0-0.2) th/mm3 Comprehensive Metabolic Panel 02/26/18 Range/Units 08:25 Sodium 140 (136-145) meq/L Potassium 3.1 L (3.5-5.1) meq/L Chloride 108 H (98-107) meq/L Carbon Dioxide 24.1 (21.0-32.0) meq/L BUN 18 (7-18) mg/dL Creatinine 0.65 (0.50-1.00) mg/dL Calcium 8.6 (8.5-10.1) mg/dL AST 21 (15-37) U/L ALT 17 (10-53) U/L Alkaline Phosphatase 102 (45-117) U/L Total Protein 7.3 (6.4-8.2) g/dL Albumin 3.4 (3.4-5.0) g/dL Intake and Output 02/26/18 02/27/18 02/27/18 22:59 06:59 14:59 Other: Weight 72 kg Weight On Admission 72 kg - Imaging and Cardiology Imaging: Impressions Chest X-Ray 02/26/18 08:05 CONCLUSION: No acute cardiopulmonary disease Venous Doppler Study 02/26/18 08:05 CONCLUSION: 1. The study is negative for bilateral lower extremity deep venous thrombosis. Ankle X-Ray 02/26/18 08:09 CONCLUSION: 1. Soft tissue swelling without acute fracture. 2. Small plantar calcaneal spur. Myocardial Perfusion Scan Nuc Med 02/27/18 13:06 CONCLUSION: 1. . Unremarkable study. Assessment and Plan - Assessment (1) Chest pain Code(s): R07.9 - Chest pain, unspecified Status: Acute (2) Hyperlipidemia Code(s): E78.5 - Hyperlipidemia, unspecified Status: Acute (3) Tobacco abuse Code(s): Z72.0 - Tobacco use Status: Acute (4) Chronic pain Code(s): G89.29 - Other chronic pain Status: Chronic - Plan * Chest pain: Patient will continue to have serial cardiac enzymes and EKGs for ruling out purposes. States she has had this discomfort for years. Upon reviewing records, patient had a nonischemic Lexiscan at this facility in 2016. She will be seen by Dr. Aguilar of cardiology in the chest pain center. She will have a Lexiscan if ruled out. She will be discharged home if stress test is nonischemic with instructions to follow-up with PCP and return to ED for interval issues. * Tobacco abuse: Patient counseled on the importance of smoking cessation. * Chronic pain: Patient views anti-inflammatories as needed. Follow-up with PCP. * Hyperlipidemia: Patient states she has not needed medication for this for some time and has been managing with diet. She is to follow-up with PCP and have this reevaluated to see if this still should be the plan. Patient is stable at this time. She is agreeable to this plan. Patient stress test was nonischemic and will be discharged home at this time. Return to ED for interval issues. Follow-up with PCP. (1) Chest pain Qualifiers: Chest pain type: unspecified Qualified Code(s): R07.9 - Chest pain, unspecified
[2018-02-27 12:06] VITALS: O2SAT 98
--- NOTE | 2018-02-28 08:21 | ECG ---
Date Performed: 02/26/2018 Time Performed: 12:09:10 PTAGE: 72 years EKG: Sinus rhythm PREVIOUS TRACING : 02/26/2018 08.57 Since previous tracing, no significant change noted DOCTOR: Merritt Harry Interpretating Date/Time 02/28/2018 08:20:25
--- NOTE | 2018-02-28 08:22 | ECG ---
Date Performed: 02/26/2018 Time Performed: 08:57:57 PTAGE: 72 years EKG: Sinus rhythm WITH SHORT CO INTERVAL BORDERLINE ECG PREVIOUS TRACING : 02/11/2018 05.46 Since previous tracing, no significant change noted DOCTOR: Merritt Harry Interpretating Date/Time 02/28/2018 08:20:36
--- NOTE | 2018-02-28 08:22 | ECG ---
Date Performed: 02/26/2018 Time Performed: 14:55:09 PTAGE: 72 years EKG: Sinus rhythm WITH SHORT UT INTERVAL BORDERLINE ECG PREVIOUS TRACING : 02/26/2018 12.09 Since previous tracing, no significant change noted DOCTOR: Merritt Harry Interpretating Date/Time 02/28/2018 08:21:52
--- NOTE | 2018-02-28 08:24 | TR ---
Date Performed: 02/27/2018 Time Performed: 08:48:30 DOCTOR: Merritt Harry DRUG LIST: CLINICAL HISTORY: REASON FOR TEST: REASON FOR ENDING: OBSERVATION: CONCLUSION: COMMENTS: Lexiscan stress test was performed under standard four minute protocol. Radionuclide was injected one minute prior to ending the test. No electrocardiographic abormalities were present t o suggest ischemia. Nuclear imaging and interpretation are pending.
== END 2018-02-27 12:32 | disposition home or self-care (01) ==
LOC: NEPB 02:34 → NEDA 02:34 → NEPGCP 13:41
PROVIDERS: ADMIT Internal Medicine Interventional Cardiology; ATTEND Internal Medicine Interventional Cardiology
CPT/HCPCS: 71010; 71045; 73610; 78452; 80053; 82550; 83520; 83880; 84484; 85025; 93005; 93017; 93970; 99285; A9502; G0378; J2785; Q9969